=== PATIENT | male | born 1955 | race Caucasian/White ===

== ENCOUNTER 2018-03-08 11:52 | Emergency (ER) | payer OTHER ==
[~2018-03-08] VITALS: Ht 175.3 cm; Wt 98.4 kg
[2018-03-08 12:01] VITALS: BP 153/85
[2018-03-08] MEDS ORDERED: famotidine 20mg tablet PO ONE (12:45)
[2018-03-08] MEDS ORDERED: diphenhydrAMINE 25mg capsule PO ONE (12:45)
[2018-03-08] MEDS ORDERED: predniSONE 20 mg tablet PO ONE (12:45)
[2018-03-08] MEDS ORDERED: FAMO40TA73 PO (12:50)
[2018-03-08] MEDS ORDERED: PRED10TA PO (12:50)
[2018-03-08] MEDS ORDERED: DIPH25CA83 PO (12:50)
== END 2018-03-08 13:04 | disposition home or self-care (01) ==
LOC: ER 11:53
DX: L23.7 Allergic contact dermatitis due to plants, except food (principal); T78.3XXA Angioneurotic edema, initial encounter; F17.200 Nicotine dependence, unspecified, uncomplicated; Z98.890 Other specified postprocedural states
CPT/HCPCS: 99284; J7512; Q0163